=== PATIENT | female | born 1995 | race Two or more races ===

== ENCOUNTER 2017-03-23 02:19 | Emergency (ER) | payer SELFPAY ==
[~2017-03-23] VITALS: Ht 157.5 cm; Wt 49.9 kg
[2017-03-23 04:56] VITALS: BP 130/71
== END 2017-03-23 05:07 ==
LOC: ER 02:19
DX: S91.312A Laceration without foreign body, left foot, initial encounter (principal); F10.129 Alcohol abuse with intoxication, unspecified; R51 Headache; V49.9XXA Car occupant (driver) (passenger) injured in unspecified traffic accident, initial encounter; Y93.89 Activity, other specified; Y99.8 Other external cause status; Y92.89 Other specified places as the place of occurrence of the external cause
CPT/HCPCS: 70450; 73620

== ENCOUNTER 2017-03-23 14:38 | Emergency (ER) | payer MEDICAID ==
[~2017-03-23] VITALS: Ht 154.9 cm; Wt 72.6 kg
[2017-03-23 14:50] VITALS: BP 127/70
== END 2017-03-23 16:44 | disposition home or self-care (01) ==
LOC: ER 14:45
DX: S91.312A Laceration without foreign body, left foot, initial encounter (principal); V49.69XA Unspecified car occupant injured in collision with other motor vehicles in traffic accident, initial encounter; Y93.89 Activity, other specified; Y99.8 Other external cause status; Y92.410 Unspecified street and highway as the place of occurrence of the external cause
CPT/HCPCS: 12002

== ENCOUNTER 2017-03-27 12:12 | Emergency (ER) | payer MEDICAID ==
[~2017-03-27] VITALS: Ht 154.9 cm; Wt 72.6 kg
[2017-03-27 12:16] VITALS: BP 118/58
== END 2017-03-27 13:21 | disposition home or self-care (01) ==
LOC: ER 12:12
DX: S91.312D Laceration without foreign body, left foot, subsequent encounter (principal)